=== PATIENT | male | born 1980 | race Two or more races ===

== ENCOUNTER 2016-10-30 12:25 | Emergency (ER) | payer OTHER ==
[~2016-10-30] VITALS: Ht 172.7 cm; Wt 71.7 kg
[2016-10-30 13:08] VITALS: BP 139/89
[2016-10-30] MEDS ORDERED: FLUORESCEIN SOD 1 MG TEST STRIP RIGHTEYE ONE (14:15)
[2016-10-30] MEDS ORDERED: PROPARACAINE HCL 0.5% OPTH(EYE) SOL 15ML OP ONE (14:15)
== END 2016-10-30 14:48 | disposition home or self-care (01) ==
LOC: ER 12:25
DX: S05.01XA Injury of conjunctiva and corneal abrasion without foreign body, right eye, initial encounter (principal); X58.XXXA Exposure to other specified factors, initial encounter; Y93.89 Activity, other specified; Y99.8 Other external cause status; Y92.69 Other specified industrial and construction area as the place of occurrence of the external cause
CPT/HCPCS: 65222

== ENCOUNTER 2016-12-28 09:21 | Emergency (ER) | payer OTHER ==
[~2016-12-28] VITALS: Ht 172.7 cm; Wt 74.4 kg
[2016-12-28 09:23] VITALS: BP 151/92
[2016-12-28] MEDS ORDERED: TETRACAINE HCL 0.5% OPTH(EYE) SOLN 4ML EACHEYE ONE (11:00)
[2016-12-28] MEDS ORDERED: FLUORESCEIN SOD 1 MG TEST STRIP OP ONE (11:00)
== END 2016-12-28 11:35 | disposition home or self-care (01) ==
LOC: ER 09:21
DX: T15.91XA Foreign body on external eye, part unspecified, right eye, initial encounter (principal); S05.01XA Injury of conjunctiva and corneal abrasion without foreign body, right eye, initial encounter; Y93.89 Activity, other specified; Y99.8 Other external cause status; Y92.89 Other specified places as the place of occurrence of the external cause
CPT/HCPCS: 65220; 65222